=== PATIENT | female | born 1950 | race Caucasian/White ===

== ENCOUNTER → 2018-03-30 | Outpatient (CLI) | payer MEDICARE, OTHER ==
[~2018-03-30] MED LIST: LIDOCAINE 2%/EPI 1:100,000 20 ML VIAL. IJ
== END | disposition home or self-care (01) ==
LOC: US 13:36
DX: C50.912 Malignant neoplasm of unspecified site of left female breast (principal); I10 Essential (primary) hypertension; J45.909 Unspecified asthma, uncomplicated; E11.9 Type 2 diabetes mellitus without complications; Z98.42 Cataract extraction status, left eye; Z98.41 Cataract extraction status, right eye; Z98.890 Other specified postprocedural states; Z90.710 Acquired absence of both cervix and uterus
CPT/HCPCS: 19081; 19083; 76942; 77065; 88305; 88361; C1713

== ENCOUNTER 2018-04-30 11:05 | Observation (INO) | payer MEDICARE, OTHER ==
[~2018-04-30 11:05] MED LIST changes: +LIDOCAINE 1% PF 2 ML VIAL. ID; -LIDOCAINE 2%/EPI 1:100,000 20 ML VIAL. IJ; +MORPHINE SULFATE 2 MG/ML DISP.SYRIN. IV; +ONDANSETRON PF 4 MG/2 ML VIAL. IV; +fentaNYL PF VIAL 100 MCG/2 ML VIAL IV
[2018-04-30] MEDS ORDERED: ceFAZolin 2GM PREMIX 2 GM/50 ML BAG IV (12:00)
[2018-04-30] MEDS: IV RINGERS,LACTATED 1000ML 1,000 ML IV (12:03)
[2018-04-30] MEDS ORDERED: PROPOFOL 20 ML IV (12:12)
[2018-04-30] MEDS ORDERED: LIDOCAINE 2% PF Vial for OR 5 ML VIAL. (12:12)
[2018-04-30] MEDS ORDERED: fentaNYL PF VIAL 250 MCG/5 ML VIAL (12:12)
[2018-04-30] MEDS: LIDOCAINE WITH 8.4% SOD BICARB 3 ML DISP.SYRIN. INJ (12:51)
[2018-04-30] MEDS ORDERED: ePHEDrine PF IN SALINE 50 MG/5 ML DISP.SYRIN IV (13:19)
[2018-04-30] MEDS: ISOSULFAN BLUE 50 MG/5 ML VIAL. SQ (13:48)
[2018-04-30] MEDS ORDERED: ONDANSETRON PF 4 MG/2 ML VIAL. (13:54)
[2018-04-30 15:22] LABS: POC GLUCOSE 108 mg/dL (70-99)
[2018-04-30 15:22] LABS: POC GLUCOSE 121 mg/dL (70-99)
[2018-04-30] MEDS ORDERED: PROCHLORPERAZINE 10 MG/2 ML VIAL. (15:48)
[2018-04-30] MEDS: PROCHLORPERAZINE 10 MG/2 ML VIAL. IV (15:51)
[2018-04-30] MEDS ORDERED: 0.9 % SODIUM CHLORIDE 10 ML DISP.SYRIN. IV (16:00)
[2018-04-30] MEDS ORDERED: MORPHINE SULFATE 2 MG/ML DISP.SYRIN. IV (16:00)
[2018-04-30 16:33] LABS: POC GLUCOSE 153 mg/dL (70-99)
[2018-04-30] MEDS: IV 1/2 NORMAL SALINE 1,000 ML IV ×2 (17:00→17:26)
[2018-04-30] MEDS: HYDROcodone/APAP 5/325MG 1 TAB TABLET PO (18:33)
[2018-04-30] MEDS ORDERED: LEVALBUTEROL HCL 0.63 MG IH (19:45)
[2018-04-30] MEDS: ALBUTEROL SULFATE 2.5 MG/3 ML NEBU. NEB (20:00)
[2018-04-30] MEDS ORDERED: ALBUTEROL SULFATE 2.5 MG/3 ML NEBU. NEB (20:00)
[2018-04-30] MEDS: BUDESONIDE 0.5 MG/2 ML NEBU. NEB (20:21)
[2018-04-30 20:33] LABS: POC GLUCOSE 158 mg/dL (70-99)
[2018-04-30] MEDS ORDERED: FLUTICASONE IH (21:00)
[2018-04-30] MEDS ORDERED: SALMETEROL IH (21:00)
[2018-05-01] MEDS: HYDROcodone/APAP 5/325MG 1 TAB TABLET PO ×2 (04:05→08:17)
[2018-05-01] MEDS: BUDESONIDE 0.5 MG/2 ML NEBU. NEB (07:07)
[2018-05-01] MEDS: ALBUTEROL SULFATE 2.5 MG/3 ML NEBU. NEB (07:07)
[2018-05-01 07:37] LABS: POC GLUCOSE 113 mg/dL (70-99)
[2018-05-01] MEDS: metFORMIN 500 MG TABLET PO (08:15)
[2018-05-01] MEDS: MULTIVITAMIN with MINERAL TABLET. PO (08:15)
== END 2018-05-01 11:30 | disposition home or self-care (01) ==
LOC: SURG 11:05 → 4 NORTH 16:11
PROVIDERS: Surgery
DX: C50.912 Malignant neoplasm of unspecified site of left female breast (principal); Z79.899 Other long term (current) drug therapy
CPT/HCPCS: 19101; 38792; 82962; 94640; 94760; 96374; A7015; A9541; G0378; G0379; J0690; J0780; J2001; J2405; J2704; J3010; J7626; Q9968

== ENCOUNTER → 2018-05-21 | Outpatient (CLI) | payer MEDICARE | END | disposition home or self-care (01) | LOC: KCIC DEXA 11:43 | DX: M85.88 Other specified disorders of bone density and structure, other site (principal); I10 Essential (primary) hypertension; E11.9 Type 2 diabetes mellitus without complications; J45.909 Unspecified asthma, uncomplicated; Z90.710 Acquired absence of both cervix and uterus; Z79.811 Long term (current) use of aromatase inhibitors; Z85.3 Personal history of malignant neoplasm of breast | CPT/HCPCS: 77080 ==

== ENCOUNTER → 2018-05-23 | Outpatient (CLI) | payer MEDICARE ==
[~2018-05-23] MED LIST changes: +CONTRAST GIVEN. MC; +IOHEXOL 240 MG/ML 50ML VIAL. PO; +IOHEXOL 300 MG/ML 100ML VIAL. IV; -LIDOCAINE 1% PF 2 ML VIAL. ID; -MORPHINE SULFATE 2 MG/ML DISP.SYRIN. IV; -ONDANSETRON PF 4 MG/2 ML VIAL. IV; -fentaNYL PF VIAL 100 MCG/2 ML VIAL IV
== END | disposition home or self-care (01) ==
LOC: CT 08:10
DX: K44.9 Diaphragmatic hernia without obstruction or gangrene (principal); J98.11 Atelectasis; I10 Essential (primary) hypertension; E11.9 Type 2 diabetes mellitus without complications; D50.9 Iron deficiency anemia, unspecified; J45.909 Unspecified asthma, uncomplicated; Z85.3 Personal history of malignant neoplasm of breast; Z17.0 Estrogen receptor positive status [ER+]
CPT/HCPCS: 71260; 74177; Q9966; Q9967

== ENCOUNTER → 2018-05-24 | Day surgery (SDC) | payer MEDICARE ==
[~2018-05-24] MED LIST changes: -CONTRAST GIVEN. MC; -IOHEXOL 240 MG/ML 50ML VIAL. PO; -IOHEXOL 300 MG/ML 100ML VIAL. IV; +IV RINGERS,LACTATED 1000ML 1,000 ML IV; +LIDOCAINE 1% PF 2 ML VIAL. ID; +MORPHINE SULFATE 2 MG/ML DISP.SYRIN. IV; +ONDANSETRON PF 4 MG/2 ML VIAL. IV; +PROCHLORPERAZINE 10 MG/2 ML VIAL. IV; +PROPOFOL 20 ML IV; +fentaNYL PF VIAL 100 MCG/2 ML VIAL IV
[2018-05-24] MEDS: IV RINGERS,LACTATED 1000ML 1,000 ML IV (13:51)
[2018-05-24 14:01] LABS: POC GLUCOSE 97 mg/dL (70-99)
== END | disposition home or self-care (01) ==
LOC: ENDOS 13:14
DX: D50.0 Iron deficiency anemia secondary to blood loss (chronic) (principal); K44.9 Diaphragmatic hernia without obstruction or gangrene; K31.7 Polyp of stomach and duodenum; I10 Essential (primary) hypertension; J45.909 Unspecified asthma, uncomplicated; E11.9 Type 2 diabetes mellitus without complications; Z79.899 Other long term (current) drug therapy; Z85.3 Personal history of malignant neoplasm of breast; Z79.84 Long term (current) use of oral hypoglycemic drugs; Z98.42 Cataract extraction status, left eye; Z98.41 Cataract extraction status, right eye; Z96.1 Presence of intraocular lens; Z98.890 Other specified postprocedural states; Z99.81 Dependence on supplemental oxygen; Z90.12 Acquired absence of left breast and nipple; Z90.710 Acquired absence of both cervix and uterus
CPT/HCPCS: 43235; 82962; J2704

== ENCOUNTER → 2019-01-09 | Outpatient (CLI) | payer MEDICARE ==
[2018-05-24 14:30] VITALS: BP 157/67
[~2019-01-09] MED LIST changes: +BUDE10.2 IH; +DILT240C2 PO; +FERR325T58 PO; +FLUT1DIS3 IH; +GUAI600T47 PO; +HYDR-2761 PO; -IV RINGERS,LACTATED 1000ML 1,000 ML IV; -LIDOCAINE 1% PF 2 ML VIAL. ID; +METF500T16 PO; -MORPHINE SULFATE 2 MG/ML DISP.SYRIN. IV; +MULT1TAB52 PO; -ONDANSETRON PF 4 MG/2 ML VIAL. IV; -PROCHLORPERAZINE 10 MG/2 ML VIAL. IV; -PROPOFOL 20 ML IV; +XOPENEX0.63 MG/3 IH; -fentaNYL PF VIAL 100 MCG/2 ML VIAL IV
--- NOTE | 2019-01-09 12:46 | RAD ---
CT of the chest without contrast, 01/09/2019: HISTORY: Breast cancer, follow-up pulmonary nodule. Noncontrast scans were obtained and compared to a study from 05/23/2018. There is a lobulated nodule in the superior segment of the right lower lobe near the oblique fissure as best seen on axial image 120 of series #3. It measures 8 x 5 mm. It lies directly adjacent to a vascular structure. No calcification is seen within this nodule. It appears to have increased slightly in size since 05/23/2018, however, comparison is difficult due to the fact that we obtained thinner 1 mm slices on today's study, better delineating this nodule than on the previous study where 5 mm slices were obtained. There are a few minimal scattered linear parenchymal opacities compatible with scarring and/or atelectasis. No other discrete pulmonary nodule or mass is seen. No dense pulmonary consolidation is evident. There is no evidence of pleural fluid. There is a large hiatal hernia. No mediastinal adenopathy is seen. There is mild calcific plaquing of the thoracic aorta without evidence of aneurysm. The left breast is surgically absent. No axillary adenopathy is seen. Moderate scattered degenerative changes are present in the spine. IMPRESSION: 1. A small lobulated nodule in the superior segment of the right lower lobe may have increased slightly in size since 05/23/2018, although comparison is difficult due to technical factors. This could be an inflammatory or neoplastic lesion. Further CT follow-up is suggested. 2. No new pulmonary abnormality is detected. 3. Large hiatal hernia. RS Compliance Statement: One or more of the following individualized dose reduction techniques were utilized for this examination: 1. Automated exposure control 2. Adjustment of the mA and/or kV according to patient size 3. Use of iterative reconstruction technique Electronically signed by: Hans Johnson MD (01/09/2019 12:43 PM) [facility]
== END | disposition home or self-care (01) ==
LOC: CT 10:54
PROVIDERS: ATTEND Internal Medicine Hematology & Oncology
DX: R91.1 Solitary pulmonary nodule (principal); K44.9 Diaphragmatic hernia without obstruction or gangrene; Z17.0 Estrogen receptor positive status [ER+]; Z85.3 Personal history of malignant neoplasm of breast
CPT/HCPCS: 71250

== ENCOUNTER → 2019-07-15 | Outpatient (CLI) | payer MEDICARE ==
[2018-05-24 14:30] VITALS: BP 157/67
--- NOTE | 2019-07-15 10:53 | RAD ---
EXAM: CT Chest without IV contrast CLINICAL HISTORY: Lung nodule follow-up COMPARISON: 01/26/2019, 05/23/2018 TECHNIQUE: CT of the chest without intravenous contrast. Axial, coronal and sagittal reformatted images were generated. ---PQRS compliance statement - One or more of the following individualized dose reduction techniques were utilized for this study: 1. Automated exposure control 2. Adjustment of the mA and/or kV according to patient size 3. Use of iterative reconstruction technique--- FINDINGS: Lack of intravenous contrast limits evaluation of solid organs, vasculature, and lymph nodes. Chest: Heart is not enlarged. No pericardial effusion. No pleural effusion or pneumothorax. Within the constraints of noncontrast examination, no mediastinal or hilar lymphadenopathy. No axillary lymphadenopathy. Changes of left mastectomy are seen. Moderate size hiatal hernia, stable. A 0.8 x 0.4 cm multilobulated nodule is seen in the right lower lobe (series 3 image 118), previously 0.8 x 0.5 cm. No definite new lung nodule is seen. Linear opacities in the lingula and lower lobes likely scarring/atelectasis. Minimal opacification in several distal airways within the lower lobes accentuated by motion artifact, possibly mucous plugging. Visualized Upper abdomen: There are gas-filled structure in the gallbladder fossa likely biliary gas, possibly from prior ERCP/intervention Bones: Degenerative changes of spine are seen. No aggressive osseous lesion. Mild rightward curvature of the thoracic spine. IMPRESSION: 1. 8 x 4 mm right lower lobe lung nodule is essentially stable. However recommend continued follow-up to establish two-year stability. 2. Tubular gas-filled structure in the region of the gallbladder fossa, incompletely included in the [id number], possibly biliary gas, nonspecific but may be seen with ERCP. Alternatively this may be a tortuous loop of small bowel that is only partially visualized. Electronically signed by: Ned Torres MD (07/15/2019 10:49 AM) [facility]
== END | disposition home or self-care (01) ==
LOC: CT 08:59
PROVIDERS: ATTEND Internal Medicine Hematology & Oncology
DX: K44.9 Diaphragmatic hernia without obstruction or gangrene (principal); R91.1 Solitary pulmonary nodule; M47.814 Spondylosis without myelopathy or radiculopathy, thoracic region; M43.8X4 Other specified deforming dorsopathies, thoracic region; Z90.89 Acquired absence of other organs
CPT/HCPCS: 71250

== ENCOUNTER → 2019-08-01 | Outpatient (CLI) | payer MEDICARE, OTHER ==
[2018-05-24 14:30] VITALS: BP 157/67
--- NOTE | 2019-08-02 18:55 | RAD ---
DATE: 08/01/2019 EXAM: MAMMO [facility]YLAN [facility] RT HISTORY: Left mastectomy in 2018. COMPARISON: 06/02/2014, 06/21/2018 mammographic exams This study was interpreted with the benefit of Computerized Aided Detection (CAD). Breast Density: SCATTERED The breast parenchyma shows scattered fibroglandular densities. Breast parenchyma level B. FINDINGS: Small masses are stable. No suspicious calcifications, new masses, or distortion. IMPRESSION: Stable BI-RADS CATEGORY: 1 NEGATIVE RECOMMENDED FOLLOW-UP: 12M 12 MONTH FOLLOW-UP PQRS compliance statement: Patient information was entered into a reminder system with a target due date for the next mammogram. Mammography is a sensitive method for finding small breast cancers, but it does not detect them all and is not a substitute for careful clinical examination. A negative mammogram does not negate a clinically suspicious finding and should not result in delay in biopsying a clinically suspicious abnormality. "Our facility is accredited by the [employer] Mammography Program."
== END | disposition home or self-care (01) ==
LOC: MAMMO 13:25
PROVIDERS: ATTEND Internal Medicine Hematology & Oncology
DX: C50.412 Malignant neoplasm of upper-outer quadrant of left female breast (principal); Z17.0 Estrogen receptor positive status [ER+]
CPT/HCPCS: 77065; G0279; 77061